=== PATIENT | female | born 1975 ===

== ENCOUNTER 2019-01-12 05:56 | Emergency (ER) | payer BC ==
[2019-01-12 06:29] VITALS: BMI 28.7
[2019-01-12 06:32] VITALS: O2SAT 98
[2019-01-12] MEDS ORDERED: Tdap Vaccine 0.5 ml Vial (10-64 yrs) IM ONE (07:34)
--- NOTE | 2019-01-12 07:35 | ED PDOC ---
HPI: Skin/Bite Injury Time Seen by Provider: 01/12/19 07:05 Chief Complaint (Nursing): Bite Chief Complaint (Provider): dog bite History Per: Patient History/Exam Limitations: no limitations Onset/Duration Of Symptoms: Hrs (05:00) Location Of Injury: Right: Hand (middle finger) Additional Complaint(s): Perla Christian is a 43 year old female, with no significant past medical history, who presents to the emergency department complaining of a right hand middle finger dog bite onset at 05:00 today. Patient states she saw a dog on the street and tried to pet him when the dog bit her and ran. Patient's tetanus shot is not up date. She denies any fever, chills, chest pain, shortness of breath, abdominal pain, nausea, vomit, diarrhea, weakness, numbness or tingling. No further medical complaints. PMD: Taye Davila - Animal Bite Description Of The Attack: Tried To Pet Animal Description Of The Animal: Unknown Past Medical History Reviewed: Historical Data, Nursing Documentation, Vital Signs Vital Signs: Last Vital Signs Temp 98.2 F 01/12/19 06:10 Pulse 72 01/12/19 06:10 Resp 18 01/12/19 06:10 BP 128/83 01/12/19 06:10 Pulse Ox 98 01/12/19 06:10 - Medical History PMH: No Chronic Diseases - Surgical History Surgical History: Appendectomy - Family History Family History: States: Unknown Family Hx - Social History Current smoker - smoking cessation education provided: No Alcohol: Social Drugs: Denies - Home Medications Home Medications: Ambulatory Orders Medication Instructions Recorded Amoxicillin/Clavulanate [Augmentin 1 tab PO BID 7 Days tab 01/12/19 875 MG-125 MG] - Allergies Allergies/Adverse Reactions: Allergies Allergy/AdvReac Type Severity Reaction Status Date / Time No Known Allergies Allergy Verified 01/12/19 06:28 Review of Systems ROS Statement: Except As Marked, All Systems Reviewed And Found Negative Constitutional: Negative for: Fever, Chills Cardiovascular: Negative for: Chest Pain Respiratory: Negative for: Shortness of Breath Gastrointestinal: Negative for: Nausea, Vomiting, Abdominal Pain Skin: Positive for: Other (right hand middle finger dog bite) Neurological: Negative for: Weakness, Numbness (tingling) Physical Exam - Reviewed Nursing Documentation Reviewed: Yes Vital Signs Reviewed: Yes - Physical Exam Appears: Positive for: No Acute Distress Head Exam: Positive for: ATRAUMATIC, NORMAL INSPECTION, NORMOCEPHALIC Skin: Positive for: Normal Color, Warm, Dry Eye Exam: Positive for: Normal appearance, EOMI, PERRL Neck: Positive for: Normal, Painless ROM Cardiovascular/Chest: Positive for: Regular Rate, Rhythm. Negative for: Murmur Respiratory: Positive for: Normal Breath Sounds. Negative for: Respiratory Distress Pulses-Radial (L): 2+ Pulses-Radial (R): 2+ Gastrointestinal/Abdominal: Positive for: Normal Exam, Soft. Negative for: Tenderness Back: Positive for: Normal Inspection Extremity: Positive for: Normal ROM (full ROM of finger), Other (Right hand middle finger with a 0.5mm superficial abrasion to the PIP joint on the lateral aspect, and a 0.2mm superficial abrasion to the dorsolateral aspect of DIP joint. No sensory deficits.). Negative for: Tenderness, Deformity, Swelling Neurologic/Psych: Positive for: Alert, Oriented. Negative for: Motor/Sensory Deficits - ECG O2 Sat by Pulse Oximetry: 98 (RA) Pulse Ox Interpretation: Normal Medical Decision Making Medical Decision Making: Time: 07:05 Initial Impression: Dog bite Initial Plan: --Adacel 0.5 ml IM --Augmentin 1 tab PO --Motrin tab 600 mg PO --Reevaluation Due to the likelihood that animal was provoked by patient and wound is superficial, patient is low risk for rabies. Patient was offered rabies vaccine treatment but declined and was made aware of all risks. Patient also declined filing a police report. 07:10 -Wound was cleaned, irrigated and properly bandaged with good cosmetic results. 07:38 Upon provider evaluation patient is medically stable, and requires no further treatment in the ED at this time. Patient will be discharged home with Rx for antibiotics. Counseling was provided and all questions were answered regarding diagnosis and need for follow up with PMD. There is agreement to discharge plan. Return if symptoms persist or worsen. Scribe Attestation: Documented by Edi Ortiz, acting as a scribe for Yazan Singh MD Provider Scribe Attestation: All medical record entries made by the Scribe were at my direction and personally dictated by me. I have reviewed the chart and agree that the record accurately reflects my personal performance of the history, physical exam, medical decision making, and the department course for this patient. I have also personally directed, reviewed, and agree with the discharge instructions and disposition. Disposition - Clinical Impression Clinical Impression: Dog bite - Patient ED Disposition Is Patient to be Admitted: No Counseled Patient/Family Regarding: Diagnosis, Need For Followup, Rx Given - Disposition Referrals: [facility] [Outside] - 01/15/19 Disposition: Routine/Home Disposition Time: 07:38 Condition: STABLE Additional Instructions: Return if not better in 3 days. Prescriptions: Amoxicillin/Clavulanate [Augmentin 875 MG-125 MG] 1 tab PO BID 7 Days tab Instructions: Animal Bites (DC) Forms: [employer] (Irish), [facility] ED School/Work Excuse Print Language: ICELANDIC
[2019-01-12] MEDS ORDERED: Amoxicillin-Clav 875-125 mg Tab PO STA (07:36)
[2019-01-12 08:00] VITALS: BP 110/60; PULSE 78; RESP 16; TEMP 97.3
== END 2019-01-12 07:56 | disposition home or self-care (01) ==
LOC: H.ER 05:56
DX: S61.252A Open bite of right middle finger without damage to nail, initial encounter (principal); W54.0XXA Bitten by dog, initial encounter; Y92.89 Other specified places as the place of occurrence of the external cause